=== PATIENT | female | born 1965 | race African-American/Black ===

== ENCOUNTER 2021-10-02 09:41 | Emergency (ER) | payer MEDICAID ==
[~2021-10-02] VITALS: Ht 170.2 cm; Wt 60.3 kg
--- NOTE | 2021-10-02 10:25 | NUR ---
DR Frias at the bedside for MSE.
[2021-10-02 10:59] LABS: CARBON DIOXIDE 31 mmol/L (21-32); CHLORIDE 103 mmol/L (98-107); CREATININE 0.9 mg/dL (0.6-1.3); GLUCOSE 104 mg/dL (74-106); POTASSIUM 3.5 mmol/L (3.5-5.1); UREA NITROGEN, BLOOD 11 mg/dL (7-18)
[2021-10-02 11:01] LABS: MEAN CORPUSCULAR HEMOGLOBIN 26.4 uug (24.7-32.8); MEAN CORPUSCULAR VOLUME 80.4 fL (75.5-95.3); PLATELET COUNT (AUTO) 279 K/uL (179-408)
[2021-10-02 11:15] LABS: ALANINE AMINOTRANSFERASE 24 U/L (14-59); ALKALINE PHOSPHATASE 64 U/L (50-136); ASPARTATE AMINOTRANSFERASE 16 U/L (15-37); BILIRUBIN,DIRECT 0.2 mg/dL (0.0-0.2); BILIRUBIN,TOTAL 0.8 mg/dL (0.2-1.0); TOTAL PROTEIN, SERUM 7.4 g/dL (6.4-8.2)
--- NOTE | 2021-10-02 13:12 | NUR ---
Patient is resting comfortably in bed with eyes closed, NAD noted.
[2021-10-02 13:59] VITALS: BP 112/66
--- NOTE | 2021-10-02 13:59 | NUR ---
Patient discharged to home in stable condition. Written and verbal after care instructions given. Patient verbalizes understanding of instructions. Stressed follow up or return to ER for worsening s/s.
== END 2021-10-02 13:59 | disposition home or self-care (01) ==
LOC: ER 09:41
DX: R07.9 Chest pain, unspecified (principal); L25.9 Unspecified contact dermatitis, unspecified cause; Z87.891 Personal history of nicotine dependence; D72.819 Decreased white blood cell count, unspecified
CPT/HCPCS: 36415; 71045; 84443; 84484; 85025; 93005; A4663

== ENCOUNTER 2022-09-15 12:10 | Emergency (ER) | payer BC, MEDICAID ==
[~2022-09-15] VITALS: Ht 170.2 cm; Wt 61.2 kg
--- NOTE | 2022-09-15 12:32 | NUR ---
[email or web address], medical screening exam in progress
[2022-09-15] MEDS ORDERED: ALBUTEROL SULFATE 2.5 MG/3 ML NEBU NEB ONE (12:45)
[2022-09-15] MEDS ORDERED: ALBUTEROL SULFATE 2.5 MG/3 ML NEBU ONE (12:49)
[2022-09-15] MEDS ORDERED: OXYM-46 NS (14:03)
[2022-09-15] MEDS ORDERED: ALBU8.5H8 INH (14:03)
--- NOTE | 2022-09-15 14:15 | NUR ---
Patient that she feels so much better. Patient discharged to home in stable condition. Written and verbal after care instructions given. Patient verbalized understanding and compliance of instructions. Stressed follow up with primary doctor or return to ER for worsening s/s.
== END 2022-09-15 14:15 | disposition home or self-care (01) ==
LOC: ER 12:10
DX: J06.9 Acute upper respiratory infection, unspecified (principal); J40 Bronchitis, not specified as acute or chronic; Z88.6 Allergy status to analgesic agent; Z88.2 Allergy status to sulfonamides; F17.200 Nicotine dependence, unspecified, uncomplicated
CPT/HCPCS: 71045; A4663

== ENCOUNTER 2023-04-05 10:53 | Emergency (ER) | payer MEDICAID ==
[~2023-04-05] VITALS: Ht 170.2 cm; Wt 61.2 kg
[~2023-04-05 10:53] MED LIST: ALBU8.5H8 INH; OXYM-46 NS
[2023-04-05 11:51] LABS: BASOPHILS % (AUTO) 0.4 % (0.0-2.0); EOSINOPHILS # (AUTO) 0.1 K/uL (0.0-0.7); EOSINOPHILS % (AUTO) 1.2 % (0.0-7.0); HEMATOCRIT 36.3 % (31.2-41.9); HEMOGLOBIN 11.9 g/dL (10.9-14.3); LYMPHOCYTES % (AUTO) 21.2 % (20.5-51.5); MEAN CORPUSCULAR HEMOGLOBIN 26.2 uug (24.7-32.8); MEAN CORPUSCULAR HGB CONC 33 g/dL (32.3-35.6); MONOCYTES # (AUTO) 0.3 K/uL (0.1-1.30); MONOCYTES % (AUTO) 6.6 % (0.0-11.0); NEUTROPHILS # (AUTO) 3.4 K/uL (1.8-8.9); NEUTROPHILS % (AUTO) 70.6 % (38.5-71.5); PLATELET COUNT (AUTO) 253 K/uL (179-408); RED BLOOD CELL COUNT(AUTO) 4.54 MIL/uL (3.63-4.92); RED CELL DISTRIBUTION WIDTH 14.6 % (12.3-17.7); WHITE BLOOD COUNT (AUTO) 4.9 K/uL (3.8-11.8)
[2023-04-05 11:58] LABS: DIFFERENTIAL COMMENT 1
[2023-04-05 12:17] LABS: CALCIUM 9.1 mg/dL (8.5-10.1); CARBON DIOXIDE 29 mmol/L (21-32); CHLORIDE 106 mmol/L (98-107); CREATININE 0.9 mg/dL (0.6-1.3); GLUCOSE 101 mg/dL (74-106); POTASSIUM 3.8 mmol/L (3.5-5.1); SODIUM SERUM 142 mmol/L (136-145); UREA NITROGEN, BLOOD 19 mg/dL (7-18)
[2023-04-05] MEDS ORDERED: IBUPROFEN 600 MG TABLET PO ONE (12:45)
[2023-04-05] MEDS ORDERED: IBUPROFEN 600 MG TABLET ONE (12:51)
[2023-04-05] MEDS ORDERED: IBUP-1955 PO (14:06)
[2023-04-05 14:53] VITALS: BP 135/88; O2SAT 99
== END 2023-04-05 14:53 | disposition home or self-care (01) ==
LOC: ER 10:53
DX: R07.89 Other chest pain (principal); R94.31 Abnormal electrocardiogram [ECG] [EKG]; F17.210 Nicotine dependence, cigarettes, uncomplicated; Z88.2 Allergy status to sulfonamides; Z88.5 Allergy status to narcotic agent; Z79.899 Other long term (current) drug therapy
CPT/HCPCS: 36415; 71045; 84484; 85025; 93005; A4663

== ENCOUNTER 2023-07-30 14:10 | Emergency (ER) | payer MEDICAID, OTHER ==
[~2023-07-30] VITALS: Ht 170.2 cm; Wt 64.9 kg
[~2023-07-30 14:10] MED LIST changes: +IBUP-1955 PO
[2023-07-30] MEDS ORDERED: CETI-194 PO (17:18)
[2023-07-30] MEDS ORDERED: AMOX-427 PO (17:18)
[2023-07-30] MEDS ORDERED: IBUP-1953 PO (17:18)
[2023-07-30 17:27] VITALS: BP 118/80; TEMP 98; O2SAT 99
== END 2023-07-30 17:27 | disposition home or self-care (01) ==
LOC: ER 14:10
DX: J01.10 Acute frontal sinusitis, unspecified (principal); F17.200 Nicotine dependence, unspecified, uncomplicated; Z79.899 Other long term (current) drug therapy; Z60.2 Problems related to living alone; Z88.2 Allergy status to sulfonamides; Z88.5 Allergy status to narcotic agent
CPT/HCPCS: 70486; A4606; A4663

== ENCOUNTER 2024-02-03 18:39 | Emergency (ER) | payer BC, OTHER ==
[~2024-02-03] VITALS: Ht 170.2 cm; Wt 65.8 kg
[~2024-02-03 18:39] MED LIST changes: +ALBU2SYR3 PO; +AMOX-427 PO; +CETI-194 PO; +IBUP-1953 PO; +PRED50TA PO; +PROM118S5 PO
[2024-02-03] MEDS ORDERED: AZIT250T13 PO (19:21)
[2024-02-03 19:24] LABS: BASOPHILS # (AUTO) 0.2 K/UL (0.0-0.2); BASOPHILS % (AUTO) 2.9 % (0.0-2.0); EOSINOPHILS # (AUTO) 0.3 K/uL (0.0-0.7); EOSINOPHILS % (AUTO) 5.3 % (0.0-7.0); HEMOGLOBIN 12.4 g/dL (10.9-14.3); LYMPHOCYTES # (AUTO) 1.2 K/uL (0.8-4.8); MEAN CORPUSCULAR HEMOGLOBIN 25.6 uug (24.7-32.8); MEAN CORPUSCULAR HGB CONC 32 g/dL (32.3-35.6); MEAN CORPUSCULAR VOLUME 80.7 fL (75.5-95.3); MONOCYTES # (AUTO) 0.4 K/uL (0.1-1.30); MONOCYTES % (AUTO) 6.6 % (0.0-11.0); NEUTROPHILS # (AUTO) 3.6 K/uL (1.8-8.9); NEUTROPHILS % (AUTO) 64.2 % (38.5-71.5); PLATELET COUNT (AUTO) 314 K/uL (179-408); RED BLOOD CELL COUNT(AUTO) 4.83 MIL/uL (3.63-4.92); RED CELL DISTRIBUTION WIDTH 14.3 % (12.3-17.7); WHITE BLOOD COUNT (AUTO) 5.7 K/uL (3.8-11.8)
[2024-02-03 19:27] LABS: DIFFERENTIAL COMMENT 1
[2024-02-03 19:32] LABS: CALCIUM 9.3 mg/dL (8.5-10.1); CARBON DIOXIDE 30 mmol/L (21-32); CHLORIDE 103 mmol/L (98-107); CREATININE 1.1 mg/dL (0.6-1.3); GLUCOSE 96 mg/dL (74-106); POTASSIUM 3.6 mmol/L (3.5-5.1); SODIUM SERUM 139 mmol/L (136-145); UREA NITROGEN, BLOOD 22 mg/dL (7-18)
[2024-02-03] MEDS ORDERED: IBUPROFEN 600 MG TABLET ONE (19:33)
[2024-02-03] MEDS ORDERED: AZITHROMYCIN 250 MG TABLET ONE (19:33)
[2024-02-03] MEDS ORDERED: ASPIRIN 81 MG TAB.CHEW ONE (19:33)
[2024-02-03] MEDS: ASPIRIN 81 MG TAB.CHEW PO ONE (19:35)
[2024-02-03] MEDS: IBUPROFEN 600 MG TABLET PO ONE (19:35)
[2024-02-03 19:44] LABS: ALANINE AMINOTRANSFERASE 13 U/L (14-59); ALBUMIN 3.7 g/dL (3.4-5.0); ALKALINE PHOSPHATASE 87 U/L (50-136); ASPARTATE AMINOTRANSFERASE 6 U/L (15-37); BILIRUBIN,DIRECT 0.1 mg/dL (0.0-0.2); BILIRUBIN,TOTAL 0.3 mg/dL (0.2-1.0); NT-PRO BNP 25 pg/mL (0-125)
[2024-02-03] MEDS: AZITHROMYCIN 250 MG TABLET PO ONE (22:43)
[2024-02-03] MEDS ORDERED: PSEU120T65 PO (22:58)
[2024-02-04 00:18] VITALS: BP 140/96; TEMP 97.8; O2SAT 98
== END 2024-02-03 23:04 | disposition home or self-care (01) ==
LOC: ER 18:40
DX: R07.89 Other chest pain (principal); R51.9 Headache, unspecified; I10 Essential (primary) hypertension; Z88.2 Allergy status to sulfonamides; Z88.5 Allergy status to narcotic agent; Z79.1 Long term (current) use of non-steroidal anti-inflammatories (NSAID); Z79.2 Long term (current) use of antibiotics; Z79.899 Other long term (current) drug therapy
CPT/HCPCS: 36415; 71045; 84484; 85025; 93005; A4606; A4663; Q0144

== ENCOUNTER 2024-04-18 22:10 | Emergency (ER) | payer BC, OTHER ==
[~2024-04-18] VITALS: Ht 170.2 cm; Wt 63.5 kg
[~2024-04-18 22:10] MED LIST changes: +AZIT250T13 PO; +PSEU120T65 PO
[2024-04-18 22:28] LABS: *BILIRUBIN,URIN NEGATIVE (NEGATIVE); *BLOOD, URINE 2+ (NEGATIVE); *COLOR,URINE YELLOW (YELLOW); *KETONES,URINE NEGATIVE (NEGATIVE); *PROTEIN,URINE 1+ (NEGATIVE); *UROBILINOGEN,URINE 0.2 E.U./dl (NORMAL); LEUKOCYTE ESTERASE ,URINE NEGATIVE (NEGATIVE); NITRITE, URINE NEGATIVE (NEGATIVE); PH,URINE 5.5 (5.0-8.0); UGLUCOSE NEGATIVE (NEGATIVE)
[2024-04-18 22:38] LABS: *CLARITY,URINE SLIGHTLY CLOUDY (CLEAR)
[2024-04-18 22:52] LABS: RBC,URINE 50-80 /HPF (0-3)
[2024-04-18 22:53] LABS: BACTERIA,URINE MODERATE /HPF (NONE SEEN); SQUAMOUS EPITHELIAL CELL,UR FEW /HPF (NONE SEEN); WBC,URINE 20-50 /HPF (0-3)
[2024-04-18] MEDS ORDERED: NITR100C6 PO (23:21)
[2024-04-18] MEDS ORDERED: NITROFURANTOIN/NITROFURAN MAC 100 MG CAPSULE PO ONE (23:22)
[2024-04-18] MEDS: NITROFURANTOIN/NITROFURAN MAC 100 MG CAPSULE PO ONE (23:24)
[2024-04-18 23:25] VITALS: BP 115/92; O2SAT 98
== END 2024-04-18 23:25 | disposition home or self-care (01) ==
LOC: ER 22:19
DX: N39.0 Urinary tract infection, site not specified (principal); I10 Essential (primary) hypertension; Z79.1 Long term (current) use of non-steroidal anti-inflammatories (NSAID); Z79.52 Long term (current) use of systemic steroids; Z79.899 Other long term (current) drug therapy; Z60.2 Problems related to living alone; Z88.2 Allergy status to sulfonamides; Z88.5 Allergy status to narcotic agent
CPT/HCPCS: A4606; A4663

== ENCOUNTER 2024-12-19 07:11 | Emergency (ER) | payer BC, OTHER ==
[~2024-12-19] VITALS: Ht 170.2 cm; Wt 79.4 kg
[~2024-12-19 07:11] MED LIST changes: +NITR100C6 PO
[2024-12-19 08:24] LABS: BASOPHILS % (AUTO) 0.4 % (0.0-2.0); EOSINOPHILS # (AUTO) 0.1 K/uL (0.0-0.7); EOSINOPHILS % (AUTO) 2.5 % (0.0-7.0); HEMATOCRIT 39.3 % (31.2-41.9); HEMOGLOBIN 12.9 g/dL (10.9-14.3); LYMPHOCYTES # (AUTO) 1.8 K/uL (0.8-4.8); LYMPHOCYTES % (AUTO) 31.3 % (20.5-51.5); MEAN CORPUSCULAR HEMOGLOBIN 25.4 uug (24.7-32.8); MEAN CORPUSCULAR HGB CONC 33 g/dL (32.3-35.6); MEAN CORPUSCULAR VOLUME 77.8 fL (75.5-95.3); MONOCYTES # (AUTO) 0.5 K/uL (0.1-1.30); MONOCYTES % (AUTO) 8.1 % (0.0-11.0); NEUTROPHILS # (AUTO) 3.3 K/uL (1.8-8.9); NEUTROPHILS % (AUTO) 57.7 % (38.5-71.5); PLATELET COUNT (AUTO) 351 K/uL (179-408); RED BLOOD CELL COUNT(AUTO) 5.06 MIL/uL (3.63-4.92); RED CELL DISTRIBUTION WIDTH 15.3 % (12.3-17.7); WHITE BLOOD COUNT (AUTO) 5.8 K/uL (3.8-11.8)
[2024-12-19 08:27] LABS: DIFFERENTIAL COMMENT 1
[2024-12-19 08:31] LABS: CALCIUM 9.2 mg/dL (8.5-10.1); CREATININE 0.9 mg/dL (0.6-1.3); POTASSIUM 3.9 mmol/L (3.5-5.1)
[2024-12-19 09:28] VITALS: BP 124/89; O2SAT 99
== END 2024-12-19 09:28 | disposition home or self-care (01) ==
LOC: ER 07:14
DX: S46.811A Strain of other muscles, fascia and tendons at shoulder and upper arm level, right arm, initial encounter (principal); I10 Essential (primary) hypertension; E88.810 Metabolic syndrome; F19.10 Other psychoactive substance abuse, uncomplicated; Z79.1 Long term (current) use of non-steroidal anti-inflammatories (NSAID); Z79.52 Long term (current) use of systemic steroids; Z87.891 Personal history of nicotine dependence; Z88.2 Allergy status to sulfonamides; Z88.5 Allergy status to narcotic agent; Z88.7 Allergy status to serum and vaccine; Z87.2 Personal history of diseases of the skin and subcutaneous tissue; Z60.2 Problems related to living alone; V49.49XA Driver injured in collision with other motor vehicles in traffic accident, initial encounter; Y93.89 Activity, other specified; Y92.488 Other paved roadways as the place of occurrence of the external cause; Y99.8 Other external cause status
CPT/HCPCS: 36415; 73060; 85025; A4606; A4663